=== PATIENT | female | born 1965 | race Caucasian/White ===

== ENCOUNTER 2023-08-15 11:08 | Outpatient (CLI) | payer BC, SELFPAY ==
[2023-08-15 11:22] LABS: Basophils % 0.6 % (0.1-2.0); Eosinophils # 0.1 K/mm3 (0.0-0.4); Eosinophils % 1.1 % (0.1-12.0); Hematocrit 46.1 % (37.0-47.0); Lymphocytes # 2.7 K/mm3 (0.7-4.5); Mean Corpuscular HGB Conc 32.5 g/dL (31.8-35.4); Mean Corpuscular Hemoglobin 28.3 pg (27.0-31.2); Mean Corpuscular Volume 87.1 fl (81-99); Mean Platelet Volume 6.8 fl (7.4-10.4); Monocytes # 0.5 K/mm3 (0.1-1.0); Monocytes % 6.4 % (1.7-9.3); Neutrophils # 3.7 K/mm3 (1.8-7.8); Neutrophils % 52.9 % (37.0-80.0); Platelet Count 334 K/mm3 (142-424); Red Blood Count 5.29 M/mm3 (4.20-5.40); Red Cell Distribution Width 14.4 % (11.5-17.5)
[2023-08-15 12:06] LABS: Hemoglobin A1C 5.8 % (4.0-6.0)
[2023-08-15 12:07] LABS: Alanine Aminotransferase 27 U/L (12-78); Albumin Level 4.8 g/dl (3.5-5.0); Albumin/Globulin Ratio 1.5 (1.1-1.8); Alkaline Phosphatase 105 U/L (38-126); Anion Gap 14.4 mEq/L (5-15); Aspartate Amino Transferase 29 U/L (14-36); Bilirubin,Total 0.9 mg/dl (0.2-1.3); Blood Urea Nitrogen 12 mg/dl (7-17); Calcium 9.7 mg/dl (8.4-10.2); Carbon Dioxide 27 mmol/L (22.0-30.0); Chloride 102 mmol/L (98-107); Chol/HDL Ratio 6.8 (1-3.5); Cholesterol 287 mg/dl (140-200); Estimated Glomerular Filt Rate 73 ml/min (>60); GFR (African American) 89 ML/MIN (>60); Globulin 3.1 g/dL (1.3-3.2); Glucose 107 mg/dl (74-100); HDL Cholesterol 42 mg/dl (40-60); Potassium 4.4 mmoL/L (3.5-5.1); Sodium 139 mmol/L (136-145); Total Protein,Serum 7.9 g/dl (6.3-8.2); Triglycerides 232 mg/dl (30-150); VLDL Cholesterol 46 mg/dL (0-40)
[2023-08-15 12:18] LABS: Direct LDL Cholesterol 173.47 mg/dL (100-129)
[2023-08-15 12:19] LABS: NT Pro Brain Natriuretic Pep. < 20.0 pg/mL (0-125)
[2023-08-15 12:27] LABS: 25-OH Vitamin D, Total 27.8 ng/mL (30-100)
[2023-08-15 12:40] LABS: Thyroid Stimulating Hormone 2.86 uIU/mL (0.465-4.68)
== END 2023-08-15 23:59 ==
LOC: LAB.DROPOF 11:08
PROVIDERS: PCP Family Medicine; Visit Provider Family Medicine
DX: R07.89 Other chest pain (principal); R53.83 Other fatigue; R06.09 Other forms of dyspnea; E55.9 Vitamin D deficiency, unspecified; R60.9 Edema, unspecified; B37.2 Candidiasis of skin and nail; R40.0 Somnolence; R06.83 Snoring; Z82.49 Family history of ischemic heart disease and other diseases of the circulatory system; Z79.899 Other long term (current) drug therapy
CPT/HCPCS: 80053; 80061; 82306; 83036; 83880; 84443; 85025

== ENCOUNTER 2023-08-23 06:15 | Outpatient (CLI) | payer BC, SELFPAY ==
--- NOTE | 2023-08-23 06:20 | NM_ITS ---
APPROVED REPORT Exam: Nuclear Stress Test Indication: HYPERLIPIDEMIA, FM HX, C.P., FATIGUE Patient Location: hyperlip Stress Tech: Anabela Manjarrez RI Tech:LINDA Hooker RT (R)(N)(M) Ht: 5 ft 6 in Wt: 253 lbs Bra Size: 40DD HR: 72 bpm BP: 140/75 mmHg BSA: 2.21 m2 TID: 1.26 BMI: 40.8 History: HYPERLIPIDEMIA, FM HX, C.P., FATIGUE Procedure: Patient received 0.4 mg of intravenous Lexiscan, resting heart rate 72 bpm, resting blood pressure 140/75 mmHg, with Lexiscan maximum heart rate achieved was 98 bpm which is % of the maximum predicted heart rate and blood pressure was 150/70 mmHg. With Lexiscan, patient denied any complaint of chest pain. Cardiac Stress and Resting SPECT Images: Cardiac Stress and Resting SPECT images were obtained using technetium 99m Myoview 31.5 mCi stress and 10.9 mCi at rest. Resting and stress imaging in supine and prone positions demonstrate medium sized, moderate, reversible perfusion defect in the basal to mid anterior LV wall. There is increased transient ischemic dilatation ratio (TID 1.26), suggestive of possible multivessel disease or balanced ischemia. Gated imaging demonstrates normal global LV systolic function. There is mild hypokinesis of the basal anterior LV wall. LVEF is calculated at 66%. Conclusion: Medium sized, moderate, reversible perfusion defect in the basal to mid anterior LV wall. Findings are suggestive of reversible ischemia. There is increased transient ischemic dilatation ratio (TID 1.26), suggestive of possible multivessel disease or balanced ischemia. Gated imaging demonstrates normal global LV systolic function. There is mild hypokinesis of the basal anterior LV wall. LVEF is calculated at 66%. Electronically signed by : Debi Shafer MD 08/26/2023 11:40:37
[2023-08-23] MEDS: SODIUM CHLORIDE 0.9% 10ML SYR (RAD ONLY) 10 ML IV ×2 (06:40→08:00)
[2023-08-23] MEDS: REGADENOSON 0.4MG/5ML SYRINGE 0.400000000000000022 MG IV (08:00)
--- NOTE | 2023-08-23 08:41 | CA_ITS ---
APPROVED REPORT Exam: Pharmacologic Technologist: Anabela Max, Ht: 5 ft 6 in Wt: 253 lbs BSA: 2.21 m2 HR: 72 bpm BP: 140/75 mmHg Rhythm: NSR Medical History Medications: Vitamin D2,,,,, Magnesium OXIDE,,,,, Ezetimibe,,,,, Furosemide,,,,, Stress Test Details Test: LEXISCAN Reason for pharmacologic stress test: physical limitation. HR Resting HR: 78 bpm Max Heart Rate (APMHR): 160 bpm Max HR Achieved: 106 bpm Target HR (85% APMHR): 136 bpm % of APMHR: 66 Recovery HR: 85 bpm BP Resting BP: 140.0/75.0 mmHg Max BP: 150.0/70.0 mmHg Recovery BP: 134.0/63.0 mmHg ECG Resting ECG: NSR Stress ECG: No significant ST changes Arrhythmia: None Clinical Exercise duration: 04:00 min Highest Stage Achieved: Exercise capacity: 1.0 METs Stress ECG Conclusion Symptoms: Mild head discomfort. No CP. Arrhythmias/Ectopy: None ST-T Changes: No significant ST changes. Conclusion: Unremarable Lexiscan stress. Myoveiw images reported separately. Test Summary REST . . . . . . . Resting REST 04:45 . . 78 . 140/ 75 . . Stage 1 01:00 . . 103 . . . . Stage 2 01:00 . . 97 . . . . Stage 3 01:00 . . 92 . 150/ 70 . . Stage 4 01:00 . . 89 . 131/ 64 . Stop exercise at 04:00 RECOVERY 01:00 . . 85 . 139/ 63 . . RECOVERY 02:00 . . 88 . 139/ 63 . . RECOVERY 02:32 . . 91 . 134/ 63 . . Electronically signed by : Debi Shafer MD 08/26/2023 11:38:58
[2023-08-23] MEDS: ISOTOPE MYOVIEW (PER STUDY) 1 DOSE IV (09:07)
== END 2023-08-23 23:59 ==
LOC: RAD 06:16
PROVIDERS: PCP Family Medicine; Visit Provider Family Medicine
DX: R06.09 Other forms of dyspnea (principal); R06.02 Shortness of breath; I20.89 Other forms of angina pectoris; R53.83 Other fatigue; R68.89 Other general symptoms and signs; G47.33 Obstructive sleep apnea (adult) (pediatric); R40.0 Somnolence; Z87.891 Personal history of nicotine dependence
CPT/HCPCS: 78452; 93017; 93018; A9502; J2785

== ENCOUNTER 2023-08-30 13:25 | Outpatient (CLI) | payer BC, SELFPAY ==
--- NOTE | 2023-08-30 13:25 | CA_ITS ---
APPROVED REPORT EXAM: Comprehensive 2D, Doppler, and color-flow Echocardiogram Valve Assembler: Anaid Shaw RT(R) Ht: 5 ft 6 in Wt: 246lbs BSA: 2.18 BP: 155/77 mmHg Indications: SOA, CP with exertion, CHRISTENSEN, family history of HD. 2D Dimensions LVEF (Adler's) 51.40 % F: 54 - 74 LV Volume 120.50 mL F: 46 - 106 LV Volume Index 55.0 mL/m2 F: 29 - 61 EF AP4 57.80 % EF AP2 48.9 % EF BP 51.4 % GL Strain -18.1 % M-Mode Dimensions RVDd 2.59 cm (0.9-2.6) LA Diam 3.37 cm (1.9-4.0) LVDd 4.63 cm (3.5-5.7) LVDs 3.23 cm (3.5-5.7) IVSd 0.98 cm (0.6-1.1) PWd 0.89 cm (0.6-1.1) EF (Teich) 57.60% FS 30.20% EDV (Teich) 98.80 mL ESV (Teich) 41.90 mL LV Diastology E Decel Time 360 (160-240 msec) E/A Ratio 0.98 Mitral Valve MV A Velocity 69.0 (40-130 cm/s) E/A Ratio 0.98 Tricuspid Valve TR P. Velocity 266.00 cm/s RAP Estimate 10.00 mmHg RVSP 38.40 mmHg Left Ventricle The left ventricle is normal size. The left ventricular systolic function is normal. There is normal left ventricular wall thickness. There is mild hypokinesis of the anteroseptal LV wall. The left ventricular diastolic function is normal. LVEF is 50-55%. Right Ventricle Right ventricle is mildly dilated. Right ventricle is mildly hypokinetic. Atria The left atrium size is normal. The right atrium size is normal. There is no Doppler evidence of interatrial shunt. Aortic Valve The aortic valve is mildly thickened. There is no aortic valvular stenosis. Trace aortic regurgitation is present. Mitral Valve The mitral valve leaflets are mildly thickened. No evidence of mitral valve stenosis. There is no mitral valve regurgitation noted. Tricuspid Valve The tricuspid valve leaflets are thin and pliable. Trace tricuspid regurgitation. RVSP is normal. Pulmonic Valve The pulmonary valve is normal in structure. Trace pulmonic regurgitation. Great Vessels The aortic root is normal in size. The ascending aorta is normal in size. IVC is normal in size and collapses >50% with inspiration. Pericardium There is no pericardial effusion. Other Information Study Quality: Fair Conclusion Normal LV systolic function (LVEF 50-55%). There is mild hypokinesis of the anteroseptal LV wall. Mild RV dilation with mild reduction in RV function. No significant valvular stenosis or regurgitation. Electronically signed by : Debi Shafer MD 09/02/2023 14:00:04
--- NOTE | 2023-08-30 14:16 | MM_ITS ---
PROCEDURE INFORMATION: Exam: MG Bilateral Screening 3D Mammography Exam date and time: 08/30/2023 2:20 PM Age: 58 years old Clinical indication: Screening. Her maternal grandmother had breast cancer in her 70s. TECHNIQUE: Imaging protocol: Bilateral Screening tomosynthesis and 2D mammography including computer-aided detection (CAD) when performed. COMPARISON: 1. MG DMDXUAVR DIG MAMM-DX UNI ADD VIEWS-RT 05/14/2016 1:50 PM 2. MG DMSB DIG MAMM-SCREEN GABI 04/17/2016 9:36 AM 3. MG DMSB DIG MAMM-SCREEN GABI 04/03/2013 2:26 PM 4. MG DMSB DIGITAL MAMM-SCREEN BILATERAL 03/20/2012 8:21 AM FINDINGS: MAMMOGRAPHY: Breast composition: The breasts are heterogeneously dense, which may obscure small masses. Mass: No suspicious mass. Architectural distortion: None. Calcifications: No suspicious calcifications. Asymmetric density: None. Skin thickening: None. Axillary adenopathy: None. IMPRESSION: No mammographic evidence of malignancy. Annual screening is recommended unless otherwise clinically indicated. ASSESSMENT: BI-RADS Category 1: Negative
== END 2023-08-30 23:59 ==
LOC: RT 13:25
PROVIDERS: PCP Family Medicine; Visit Provider Family Medicine
DX: R06.02 Shortness of breath (principal); R06.09 Other forms of dyspnea; R60.9 Edema, unspecified; Z12.31 Encounter for screening mammogram for malignant neoplasm of breast
CPT/HCPCS: 77063; 77067; 93306

== ENCOUNTER 2023-09-11 08:16 | Day surgery (SDC) | payer BC, SELFPAY ==
[2023-09-11] VITALS (8 sets, daily range): BP systolic 107–138; BP diastolic 62–77; PULSE 63–79; RESP 14–20; TEMP 36.3; O2SAT 93–99; BMI 39.6; BMI 22.6; BMI 38.7
--- NOTE | 2023-09-11 07:06 | IR_ITS ---
APPROVED REPORT Patient Location: Outpatient PROCEDURES Selective coronary angiogram Intravascular ultrasound to the proximal leading Informed consent was obtained prior to the procedure. COMPLICATIONS NONE Estimated Blood Loss: LESS THAN 10 ML TECHNIQUE One percent lidocaine used to anesthetize the right anterior aspect of the wrist. The right radial artery was accessed via the Seldinger technique. A 6 [place] Island[place] sheath was placed in the right radial artery. 2.5 mg of Verapamil, 800 mcg of nitroglycerin, 1mg Lidocaine and 5000 U Heparin were given through the arterial sheath. The papa catheter was also used to perform selective coronary angiogram. At the end of the diagnostic angiogram therapeutic heparin was administered giving a therapeutic ACT and the guide catheter was left in the left main artery followed by Choice PT to support wire placed down the LAD. Intravascular ultrasound probe was advanced and used to interrogate the proximal LAD stenosis. This demonstrated an atherosclerotic plaque of approximately 20% which did not meet criteria for revascularization. The MLA exceeded 8 mm???. At the end of procedure the apparatus was removed the sheath was removed and hemostasis was achieved using TR banding patient was transferred to the postop holding in stable condition ANGIOGRAPHIC RESULTS The left main artery Normal The left anterior descending artery Has a proximal 40% stenosis by angiography however IVUS demonstrated the stenosis was 20% The circumflex artery Nondominant with mild luminal irregularities The right coronary artery Dominant with 10% luminal irregularities The GAMING ventriculogram reveals Not performed The left ventricular end-diastolic pressure Not measured IMPRESSION Mild proximal LAD disease Diffuse nonocclusive disease PLAN 1. Medical management 2. Risk factor modification Electronically signed by : Eric Saldaña MD 09/11/2023 13:48:13
[2023-09-11 09:26] LABS: Chloride 108 mmol/L (98-107)
[2023-09-11 09:27] LABS: Potassium 4.4 mmoL/L (3.5-5.1); Sodium 139 mmol/L (136-145)
[2023-09-11 09:29] LABS: Blood Urea Nitrogen 15 mg/dl (7-17); Creatinine Clearance Estimated 151 mL/min (50-200); Estimated Glomerular Filt Rate 85 ml/min (>60); GFR (African American) 103 ML/MIN (>60)
[2023-09-11 09:30] LABS: Anion Gap 6.4 mEq/L (5-15); Calcium 9.5 mg/dl (8.4-10.2); Carbon Dioxide 29 mmol/L (22.0-30.0); Glucose 110 mg/dl (74-100)
[2023-09-11 09:39] LABS: Basophils # 0.1 K/mm3 (0-0.2); Basophils % 1.2 % (0.1-2.0); Eosinophils # 0.1 K/mm3 (0.0-0.4); Eosinophils % 0.9 % (0.1-12.0); Hematocrit 40.1 % (37.0-47.0); Hemoglobin 12.9 g/dL (12.2-16.2); Lymphocytes # 2.3 K/mm3 (0.7-4.5); Lymphocytes % 38.4 % (10-50); Mean Corpuscular HGB Conc 32.2 g/dL (31.8-35.4); Mean Corpuscular Hemoglobin 27.8 pg (27.0-31.2); Mean Corpuscular Volume 86.3 fl (81-99); Mean Platelet Volume 7.7 fl (7.4-10.4); Monocytes # 0.3 K/mm3 (0.1-1.0); Monocytes % 5.6 % (1.7-9.3); Neutrophils # 3.2 K/mm3 (1.8-7.8); Neutrophils % 53.9 % (37.0-80.0); Platelet Count 291 K/mm3 (142-424); Red Blood Count 4.65 M/mm3 (4.20-5.40); Red Cell Distribution Width 14.6 % (11.5-17.5); White Blood Count 5.9 K/mm3 (4.8-10.8)
[2023-09-11] MEDS: VERAPAMIL 2.5MG/ML 2ML VIAL 2.5 MG IV (12:16)
[2023-09-11] MEDS: diphenhydrAMINE 50MG/ML VIAL 50 MG IV (12:16)
[2023-09-11] MEDS: HEPARIN 1,000 UNITS/500ML NS (CATH LAB) 3000 UNIT IV (12:17)
[2023-09-11] MEDS: MIDAZOLAM HCL 1MG/1ML 5ML VIAL 1 MG IV (12:17)
[2023-09-11] MEDS: HEPARIN 1,000 UNITS/ML 10ML VIAL (CATH LAB) 10000 UNIT IV (12:17)
[2023-09-11] MEDS: 0.9 % SODIUM CHLORIDE 500 ML 25 ML IV (12:17)
[2023-09-11] MEDS: FENTANYL 100MCG/2ML VIAL 50 MCG IV (12:17)
[2023-09-11] MEDS: IOPAMIDOL-370 (76%);100ML BOTTLE 70 ML IV (13:34)
== END 2023-09-11 15:11 | disposition home or self-care (01) ==
PROVIDERS: PCP Family Medicine; Visit Provider Internal Medicine
DX: I25.10 Atherosclerotic heart disease of native coronary artery without angina pectoris (principal); R93.1 Abnormal findings on diagnostic imaging of heart and coronary circulation; I10 Essential (primary) hypertension; Z82.49 Family history of ischemic heart disease and other diseases of the circulatory system; Z79.899 Other long term (current) drug therapy; Z87.891 Personal history of nicotine dependence; R06.02 Shortness of breath
CPT/HCPCS: 80048; 85025; 92978; 93454; 99152; C1725; C1769; J1644; Q9967

== ENCOUNTER → 2023-09-30 07:16 | Outpatient (CLI) | payer BC, SELFPAY | LOC: SL 07:17 | PROVIDERS: PCP Family Medicine; Visit Provider Family Medicine | DX: G47.33 Obstructive sleep apnea (adult) (pediatric) (principal); G47.36 Sleep related hypoventilation in conditions classified elsewhere | CPT/HCPCS: G0399 ==

== ENCOUNTER 2023-12-09 10:42 | Outpatient (CLI) | payer BC, SELFPAY ==
[2023-12-09 19:40] LABS: Alanine Aminotransferase 21 U/L (12-78); Albumin Level 4.6 g/dl (3.5-5.0); Alkaline Phosphatase 89 U/L (38-126); Aspartate Amino Transferase 26 U/L (14-36); Bilirubin,Indirect 0.8 mg/dL (0.0-0.9); Bilirubin,Total 0.8 mg/dl (0.2-1.3); Bilirubin,Unconjugated 0.8 mg/dL (0.0-1.1); Chol/HDL Ratio 3.3 (1-3.5); Cholesterol 148 mg/dl (140-200); HDL Cholesterol 45 mg/dl (40-60); Total Protein,Serum 7.7 g/dl (6.3-8.2); Triglycerides 116 mg/dl (30-150); VLDL Cholesterol 23 mg/dL (0-40)
[2023-12-09 19:56] LABS: Direct LDL Cholesterol 74.77 mg/dL (100-129)
== END 2023-12-09 23:59 | disposition home or self-care (01) ==
LOC: LAB.DROPOF 12-10 10:43
PROVIDERS: PCP Family Medicine; Visit Provider Family Medicine
DX: E78.5 Hyperlipidemia, unspecified (principal)
CPT/HCPCS: 80061; 80076

== ENCOUNTER 2024-12-14 09:35 | Outpatient (CLI) | payer BC, SELFPAY ==
[2024-12-14 14:40] LABS: Hematocrit 44.5 % (37.0-47.0); Hemoglobin 13.9 g/dL (12.2-16.2); Immature Granulocytes % 0 %; Mean Corpuscular HGB Conc 31.2 g/dL (31.8-35.4); Mean Corpuscular Hemoglobin 27.4 pg (27.0-31.2); Mean Corpuscular Volume 87.6 fl (81-99); Nucleated Red Blood Cells % 0 %; Platelet Count 245 K/mm3 (142-424); Red Blood Count 5.08 M/mm3 (4.20-5.40); Red Cell Distribution Width-SD 41.7 fL; White Blood Count 5.0 K/mm3 (4.8-10.8)
[2024-12-14 15:16] LABS: Hemoglobin A1C 6.4 % (4.0-6.0)
[2024-12-14 15:18] LABS: Alanine Aminotransferase 27 U/L (12-78); Albumin Level 4.9 g/dl (3.5-5.0); Albumin/Globulin Ratio 1.7 (1.1-1.8); Alkaline Phosphatase 65 U/L (38-126); Anion Gap 17.7 mEq/L (5-15); Aspartate Amino Transferase 31 U/L (14-36); Bilirubin,Total 1.0 mg/dl (0.2-1.3); Blood Urea Nitrogen 16 mg/dl (7-17); Calcium 10.0 mg/dl (8.4-10.2); Carbon Dioxide 28 mmol/L (22.0-30.0); Chloride 99 mmol/L (98-107); Cholesterol 133 mg/dl (140-200); Creatinine,Serum 0.70 mg/dl (0.52-1.04); Estimated Glomerular Filt Rate 85 ml/min (>60); GFR (African American) 103 ML/MIN (>60); Globulin 2.9 g/dL (1.3-3.2); Glucose 98 mg/dl (74-100); HDL Cholesterol 63 mg/dl (40-60); Potassium 4.7 mmoL/L (3.5-5.1); Sodium 140 mmol/L (136-145); Total Protein,Serum 7.8 g/dl (6.3-8.2); Triglycerides 64 mg/dl (30-150)
[2024-12-14 15:31] LABS: 25-OH Vitamin D, Total 40.6 ng/mL (30-100)
[2024-12-14 15:44] LABS: Thyroid Stimulating Hormone 1.98 uIU/mL (0.465-4.68)
== END 2024-12-14 23:59 | disposition home or self-care (01) ==
LOC: LAB.DROPOF 12-15 13:14
PROVIDERS: PCP Family Medicine; Visit Provider Family Medicine
DX: E55.9 Vitamin D deficiency, unspecified (principal); E78.5 Hyperlipidemia, unspecified; R73.03 Prediabetes; I25.10 Atherosclerotic heart disease of native coronary artery without angina pectoris; I10 Essential (primary) hypertension; R06.83 Snoring; G47.33 Obstructive sleep apnea (adult) (pediatric); Z87.891 Personal history of nicotine dependence
CPT/HCPCS: 80053; 80061; 82306; 83036; 84443; 85025

== ENCOUNTER 2024-12-18 16:11 | Outpatient (CLI) | payer BC, SELFPAY ==
--- NOTE | 2024-12-18 16:30 | MM_ITS ---
PROCEDURE INFORMATION: Exam: MG Bilateral Screening 3D Mammography Exam date and time: 12/18/2024 4:16 PM Age: 59 years old Clinical indication: Screening exam. TECHNIQUE: Imaging protocol: Bilateral Screening tomosynthesis and 2D mammography including computer-aided detection (CAD) when performed. COMPARISON: 1. MG MM DIG SCREENING MAMM BI W/CAD 08/30/2023 2:20 PM 2. MG DMDXUAVR DIG MAMM-DX UNI ADD VIEWS-RT 05/14/2016 1:50 PM FINDINGS: MAMMOGRAPHY: Breast composition: The breasts are heterogeneously dense, which may obscure small masses. Mass: No suspicious masses. Architectural distortion: Small region of questioned architectural distortion/change right lateral breast posterior depth. Calcifications: No suspicious calcifications. Asymmetric density: None. Skin thickening: None. Axillary adenopathy: None. IMPRESSION: Small region of questioned architectural distortion/change in the right breast.Recommend right breast diagnostic mammogram including spot compression views of the right breast in the CC and MLO projections, a full 90 degree lateral view, and right breast ultrasound for further evaluation. ASSESSMENT: BI-RADS Category 0: Incomplete- Need Additional Imaging Evaluation.
== END 2024-12-18 23:59 | disposition home or self-care (01) ==
LOC: RAD 16:11
PROVIDERS: PCP Family Medicine; Visit Provider Family Medicine
DX: Z12.31 Encounter for screening mammogram for malignant neoplasm of breast (principal); R92.333 Mammographic heterogeneous density, bilateral breasts; R92.8 Other abnormal and inconclusive findings on diagnostic imaging of breast
CPT/HCPCS: 77063; 77067

== ENCOUNTER 2024-12-31 13:44 | Outpatient (CLI) | payer BC, SELFPAY ==
--- NOTE | 2024-12-31 14:00 | MM_ITS ---
PROCEDURE INFORMATION: Exam: US Right Breast, Complete MG Right Diagnostic Breast Tomosynthesis Exam date and time: 12/31/2024 2:10 PM Age: 59 years old Clinical indication: Callback from screening for questioned region of distortion right breast. TECHNIQUE: Imaging protocol: Complete ultrasound of all four quadrants of the right breast and the retroareolar regions, including ultrasound of the axilla when performed. Right Diagnostic tomosynthesis and 2D mammography including computer-aided detection (CAD) when performed. Unilateral or bilateral exam. COMPARISON: MG MM DIG SCREENING MAMM BI W/CAD 12/18/2024 4:16 PM FINDINGS: MAMMOGRAPHY: Breast composition: The breasts are heterogeneously dense, which may obscure small masses. Breast mammogram findings: Right breast spot compression and 90 degree lateral tomosynthesis views were obtained. The region of questioned distortion noted on screening mammogram does not persist on problem solving views compatible with overlapping normal fibroglandular tissue.Elsewhere, there are no suspicious masses or calcifications in the partially visualized breast. No abnormal lymph nodes in the partially visualized axilla. ULTRASOUND: Breast ultrasound findings: Right breast ultrasound: No solid or suspicious masses. No abnormal shadowing or distortion. Incidentally noted benign simple cyst at 5 o'clock measuring 0.9 cm. No abnormal lymph nodes in the axilla. IMPRESSION: There are no findings suspicious for malignancy. Annual mammographic screening is recommended unless otherwise clinically indicated. ASSESSMENT: BI-RADS Category 2: Benign.
== END 2024-12-31 23:59 | disposition home or self-care (01) ==
LOC: RAD 13:45
PROVIDERS: PCP Family Medicine; Visit Provider Family Medicine
DX: N60.01 Solitary cyst of right breast (principal); R92.331 Mammographic heterogeneous density, right breast; R92.8 Other abnormal and inconclusive findings on diagnostic imaging of breast
CPT/HCPCS: 76641; 77061; 77065; G0279